=== PATIENT | female | born 1945 | race Caucasian/White ===

== ENCOUNTER 2017-08-31 09:29 | Outpatient (RCR) | payer MEDICARE, BC ==
[2017-06-30 13:09] LABS: PLATELET COUNT, AUTOMATED 190 K/uL (150-450)
[2017-06-30] MEDS: LIDOCAINE/SOD BICARB 8.4% SYR ID PRN (13:22)
[2017-06-30 14:58] VITALS: BP 122/74
[~2017-08-31 09:29] MED LIST: ALE70 PO; CHOL200021 PO; DEXTROSE 5%(*) 100 ML BAG 100 ML IVPB PRN; FOLI-68 PO; FOLTX PO; INF100I IV; METH2.5T43 PO; METHOTREXATE PO; MULT-1335 PO; MULT-27 PO; NS(*) 0.9% 100 ML BAG 100 ML IVPB PRN; PNEU0.5D3 IM; inFLIXimab 100 MG VIAL 300 MG in NS(*) 0.9% 250 ML BAG 250 ML IVPB ONE
[2017-08-31 09:43] VITALS: BP 114/71
[2017-08-31] MEDS: LIDOCAINE/SOD BICARB 8.4% SYR ID PRN (09:58)
[2017-08-31 10:02] LABS: PLATELET COUNT, AUTOMATED 213 K/uL (150-450)
[2017-08-31] MEDS ORDERED: inFLIXimab 100 MG VIAL 300 MG in NS(*) 0.9% 250 ML BAG 250 ML IVPB ONE (11:00)
[2017-08-31 12:45] VITALS: BP 118/77
== END 2017-09-21 ==
LOC: SPU 09:29
PROVIDERS: ATTEND Internal Medicine Rheumatology
DX: M06.9 Rheumatoid arthritis, unspecified (principal)
CPT/HCPCS: 85025; 96413; 96415; J1745; J7050; 82040; 82247; 82310; 82374; 82435; 82565; 82947; 84075; 84132; 84155; 84295; 84450; 84460; 84520

== ENCOUNTER 2017-12-21 12:48 | Outpatient (RCR) | payer MEDICARE, BC ==
[2017-10-26 13:02] VITALS: BP 114/72
[2017-10-26 13:02] LABS: PLATELET COUNT, AUTOMATED 210 K/uL (150-450)
[2017-10-26] MEDS: LIDOCAINE/SOD BICARB 8.4% SYR ID PRN (13:30)
[2017-10-26] MEDS: NS(*) 0.9% 100 ML BAG 100 ML IVPB PRN (13:30)
[2017-10-26 16:12] VITALS: BP 124/71
[~2017-12-21 12:48] MED LIST changes: -NS(*) 0.9% 100 ML BAG 100 ML IVPB PRN
[2017-12-21 13:07] VITALS: BP 137/69
[2017-12-21 13:22] LABS: PLATELET COUNT, AUTOMATED 203 K/uL (150-450)
[2017-12-21] MEDS: LIDOCAINE/SOD BICARB 8.4% SYR ID PRN (13:46)
[2017-12-21] MEDS: NS(*) 0.9% 100 ML BAG 100 ML IVPB PRN (13:47)
[2017-12-21] MEDS ORDERED: inFLIXimab 100 MG VIAL 300 MG in NS(*) 0.9% 250 ML BAG 250 ML IVPB ONE (13:55)
[2017-12-21 16:00] VITALS: BP 135/75
== END 2017-12-27 13:56 | disposition home or self-care (01) ==
LOC: SPU 12:48
PROVIDERS: ATTEND Internal Medicine Rheumatology
DX: M06.9 Rheumatoid arthritis, unspecified (principal)
CPT/HCPCS: 85025; 96365; 96366; 96413; 96415; J1745; J7050; 82040; 82247; 82310; 82374; 82435; 82565; 82947; 84075; 84132; 84155; 84295; 84450; 84460; 84520

== ENCOUNTER 2018-04-12 12:51 | Outpatient (RCR) | payer MEDICARE, BC ==
[2018-02-15 13:00] VITALS: BP 134/72
[2018-02-15 13:19] LABS: PLATELET COUNT, AUTOMATED 211 K/uL (150-450)
[2018-02-15] MEDS: NS(*) 0.9% 100 ML BAG 100 ML IVPB PRN (13:26)
[2018-02-15] MEDS: LIDOCAINE/SOD BICARB 8.4% SYR ID PRN (13:27)
[2018-02-15 15:38] VITALS: BP 119/70
[2018-04-12 13:02] VITALS: BP 136/76
[2018-04-12 13:19] LABS: PLATELET COUNT, AUTOMATED 220 K/uL (150-450)
[2018-04-12] MEDS: LIDOCAINE/SOD BICARB 8.4% SYR ID PRN (13:43)
[2018-04-12] MEDS: NS(*) 0.9% 100 ML BAG 100 ML IVPB PRN (13:44)
[2018-04-12] MEDS ORDERED: inFLIXimab 100 MG VIAL 300 MG in NS(*) 0.9% 250 ML BAG 250 ML IVPB ONE (14:00)
== END 2018-05-15 ==
LOC: SPU 12:51
PROVIDERS: ATTEND Internal Medicine Rheumatology
DX: M06.9 Rheumatoid arthritis, unspecified (principal)
CPT/HCPCS: 85025; 96413; 96415; J1745; J7050; 82040; 82247; 82310; 82374; 82435; 82565; 82947; 84075; 84132; 84155; 84295; 84450; 84460; 84520

== ENCOUNTER 2018-08-02 12:37 | Outpatient (RCR) | payer MEDICARE, BC ==
[2018-06-07 12:52] VITALS: BP 133/79
[2018-06-07 13:22] LABS: PLATELET COUNT, AUTOMATED 207 K/uL (150-450)
[2018-06-07] MEDS: LIDOCAINE/SOD BICARB 8.4% SYR ID PRN (13:45)
[2018-06-07] MEDS: NS(*) 0.9% 100 ML BAG 100 ML IVPB PRN (13:46)
[2018-06-07 15:51] VITALS: BP 124/70
[2018-08-02 13:02] VITALS: BP 135/73
[2018-08-02 13:17] LABS: PLATELET COUNT, AUTOMATED 220 K/uL (150-450)
[2018-08-02] MEDS: LIDOCAINE/SOD BICARB 8.4% SYR ID PRN (13:19)
[2018-08-02] MEDS: NS(*) 0.9% 100 ML BAG 100 ML IVPB PRN (13:20)
[2018-08-02] MEDS ORDERED: inFLIXimab 100 MG VIAL 300 MG in NS(*) 0.9% 250 ML BAG 250 ML IVPB ONE (13:45)
[2018-08-02 15:25] VITALS: BP 121/79
== END 2018-09-04 ==
LOC: SPU 12:37
PROVIDERS: ATTEND Internal Medicine Rheumatology
DX: M06.9 Rheumatoid arthritis, unspecified (principal)
CPT/HCPCS: 36415; 85025; 96413; 96415; J1745; J7050; 82040; 82247; 82310; 82374; 82435; 82565; 82947; 84075; 84132; 84155; 84295; 84450; 84460; 84520

== ENCOUNTER → 2018-11-08 | Outpatient (CLI) | payer MEDICARE, BC ==
[~2018-11-08] MED LIST changes: -DEXTROSE 5%(*) 100 ML BAG 100 ML IVPB PRN; -inFLIXimab 100 MG VIAL 300 MG in NS(*) 0.9% 250 ML BAG 250 ML IVPB ONE
--- NOTE | 2018-11-08 12:05 | RADIOLOGY IMAGING REPORT ---
FACILITY: [facility] PATIENT NAME: Lin Cao : 1945 MR: [id number] V: [id number] EXAM DATE: ORDERING PHYSICIAN: DILLAN MURRY TECHNOLOGIST: Location: [facility] Patient: Lin Cao : 1945 Visit/Account:[id number] Date of Sevice: 11/08/2018 DEXA Scan Clinical history: Postmenopausal estrogen deficiency. Comparison: None available. LUMBAR SPINE: The bone mineral density (BMD) measured from L1-L4 correlates with a Z-score 0.4 and a T-score of -1. 5 which is osteopenia as defined by the World Health Organization. The corresponding risk of fractur e in the lumbar spine is 3 times increased compared with a young adult reference population. HIP: Bone mineral density (BMD) measured in the Left total hip region correlates with a Z-score 0.2 and a T-score of -1.5 which is osteopenia as defined by the World Health Organization. The corresponding r isk of fracture in the hip is 3 times increased compared with a young adult reference population. T score left femoral neck -1.9 Bone mineral density (BMD) measured in the Femoral Neck region measures 0.776 g/cm2. Impression: 1. Lumbar spine: Osteopenia. 2. Left Hip: Osteopenia. 3. Femoral Neck: Bone Mineral Density is 0.776 g/cm2 The next DEXA scan of this patient should include the following sites: L1-L4 and the left hip. FRAX? WHO Fracture Risk Assessment Tool link: <http://www.shef.ac.uk/FRAX/tool.jsp?locationValue=9> PLEASE NOTE: 1) The World Health Organization defines low BMD as follows: T-score Normal > -1 Osteopenia < -1 and > -2.5 Osteoporosis < -2.5 without fractures Established osteoporosis < -2.5 with fractures 2) In general, you may wish to consider: Diagnosis Treatment Follow-up DEXA Normal BMD Prevention 2-3 years Osteopenia Prevention/therapy 1-2 years Osteoporosis Therapy Yearly 3) Fracture risk estimated from the T-score is more accurate for vertebral fractures (often spontane ous) than for hip fractures. Report Dictated By: Linda Ayon MD at 11/08/2018 11:59 AM Report E-Signed By: Linda Ayon MD at 11/08/2018 12:00 PM WSN:IRMA
== END ==
LOC: LAB 11:06
PROVIDERS: ATTEND Emergency Medicine
DX: Z01.818 Encounter for other preprocedural examination (principal); M85.89 Other specified disorders of bone density and structure, multiple sites; M06.9 Rheumatoid arthritis, unspecified; G62.9 Polyneuropathy, unspecified
CPT/HCPCS: 36415; 77080; 82465; 82607; 83718; 84443; 84478

== ENCOUNTER → 2018-11-15 | Outpatient (CLI) | payer MEDICARE, BC | LOC: LAB 14:59 | PROVIDERS: ATTEND Surgery | DX: L82.1 Other seborrheic keratosis (principal) | CPT/HCPCS: 88305 ==

== ENCOUNTER 2018-11-22 09:47 | Outpatient (RCR) | payer MEDICARE, BC ==
[2018-09-27 13:25] VITALS: BP 131/82
[2018-09-27 13:27] LABS: PLATELET COUNT, AUTOMATED 222 K/uL (150-450)
[2018-09-27] MEDS: LIDOCAINE/SOD BICARB 8.4% SYR ID PRN (13:32)
[2018-09-27] MEDS: NS(*) 0.9% 100 ML BAG 100 ML IVPB PRN (13:37)
[2018-09-27 15:58] VITALS: BP 139/88
[~2018-11-22 09:47] MED LIST changes: +DEXTROSE 5%(*) 100 ML BAG 100 ML IVPB PRN; +inFLIXimab 100 MG VIAL 300 MG in NS(*) 0.9% 250 ML BAG 250 ML IVPB ONE
[2018-11-22 10:15] VITALS: BP 135/77
[2018-11-22] MEDS: NS(*) 0.9% 100 ML BAG 100 ML IVPB PRN (10:45)
[2018-11-22] MEDS: LIDOCAINE/SOD BICARB 8.4% SYR ID PRN (10:45)
[2018-11-22 10:51] LABS: PLATELET COUNT, AUTOMATED 206 K/uL (150-450)
[2018-11-22] MEDS ORDERED: inFLIXimab 100 MG VIAL 300 MG in NS(*) 0.9% 250 ML BAG 250 ML IVPB ONE (11:30)
[2018-11-22 12:42] VITALS: BP 126/71
== END 2018-12-25 ==
LOC: SPU 09:47
PROVIDERS: ATTEND Internal Medicine Rheumatology
DX: M06.9 Rheumatoid arthritis, unspecified (principal)
CPT/HCPCS: 36415; 85025; 96413; 96415; J1745; J7050; 82040; 82247; 82310; 82374; 82435; 82565; 82947; 84075; 84132; 84155; 84295; 84450; 84460; 84520

== ENCOUNTER → 2018-12-10 | Outpatient (CLI) | payer MEDICARE, BC ==
[~2018-12-10] MED LIST changes: -DEXTROSE 5%(*) 100 ML BAG 100 ML IVPB PRN; -inFLIXimab 100 MG VIAL 300 MG in NS(*) 0.9% 250 ML BAG 250 ML IVPB ONE
== END ==
LOC: LAB 14:11
PROVIDERS: ATTEND Emergency Medicine
DX: R79.89 Other specified abnormal findings of blood chemistry (principal)
CPT/HCPCS: 36415; 84439; 84443; 84481; 86376; 86800

== ENCOUNTER → 2018-12-27 | Outpatient (CLI) | payer MEDICARE, BC ==
--- NOTE | 2019-01-01 13:39 | RADIOLOGY IMAGING REPORT ---
FACILITY: [facility] PATIENT NAME: CATHY MORENO : [id number] MR: [id number] V: [id number] EXAM DATE: [id number] ORDERING PHYSICIAN: DILLAN MURRY TECHNOLOGIST: Emily Zarate PROCEDURE: BILATERAL DIGITAL SCREENING MAMMOGRAM WITH CAD ASSISTED INTERPRETATION & 3D TOMOSYNTHESIS. REASON FOR STUDY: Screening. FAMILY HISTORY OF BREAST CANCER: None. BREAST PROCEDURES/TREATMENTS: None. COMPARISON: [facility] from 11/12/2009 & 09/05/2006. VIEWS OBTAINED: 2D & 3D full field CC & MLO projections. BREAST DENSITY: Scattered fibroglandular tissue. MAMMOGRAM FINDINGS: There are no mass lesions, architectural distortions, or clusters of suspicious microcalcification. No interval change when compared to previous studies. IMPRESSION: BIRADS 1: Negative. DIAGNOSTIC CATEGORY 1--NEGATIVE. RECOMMENDATIONS: ROUTINE MAMMOGRAM IN 1YR AND CLINICAL EVALUATION. Dictated by: Denis Roe M.D. on 12/27/2018 at 17:04 Transcribed by: BOZENA on 12/28/2018 at 11:34 Approved by: Denis Roe M.D. on 01/01/2019 at 13:35 [facility]
== END ==
LOC: MAMO 01:23
PROVIDERS: ATTEND Emergency Medicine
DX: Z12.31 Encounter for screening mammogram for malignant neoplasm of breast (principal)
CPT/HCPCS: 77063; 77067